=== PATIENT | female | born 1960 | race Caucasian/White ===

== ENCOUNTER 2021-05-09 09:48 | Outpatient (CLI) | payer SELFPAY ==
--- NOTE | ~2021-05-09 | XR_ITS ---
EXAMINATION: XR chest 2V DATE: 05/09/2021 10:15 INDICATION: Shortness of breath, tobacco use TECHNIQUE: PA and lateral views of the chest are obtained. COMPARISON: 02/12/2017 FINDINGS: The lungs are free of acute opacities. There is no pleural effusion or pneumothorax. The ca rdiomediastinal silhouette is normal. There is moderate thoracic spondylosis. IMPRESSION: 1. No acute cardiopulmonary abnormality. Reviewed, dictated and finalized at location B.
[2021-05-09 10:05] LABS: Basophils Absolute Auto 0.06 K/mm3 (0.00-0.10); Eosinophils Absolute Auto 0.22 K/mm3 (0.02-0.50); Eosinophils Percent Auto 3.7 % (1.0-6.0); Hematocrit 41.4 % (35.0-49.0); Hemoglobin 13.6 g/dL (12.0-15.0); Immature Granulocyte Absolute 0.03 K/mm3 (0.00-0.00); Immature Granulocyte Percent A 0.5 % (0.0-0.0); Lymphocytes Absolute Auto 1.41 K/mm3 (1.10-4.50); Lymphocytes Percent Auto 23.6 % (18.0-42.0); Mean Corpuscular HGB Conc 32.9 g/dL (32.0-36.0); Mean Corpuscular Volume 91.4 fL (78.0-102.0); Mean Platelet Volume 8.8 fl (9.2-11.8); Monocytes Absolute Auto 0.64 K/mm3 (0.10-0.90); Monocytes Percent Auto 10.7 % (2.0-11.0); Neutrophils Absolute Auto 3.6 K/mm3 (1.7-7.2); Neutrophils Percent Auto 60.5 % (50.0-70.0); Platelet Count Result 300 K/mm3 (150-420); Red Blood Count 4.53 M/mm3 (4.20-5.40); Red Cell Distribution Width 13.3 % (11.6-14.4)
[2021-05-09 10:50] LABS: Alanine Aminotransferase 30 U/L (14-59); Albumin Level 3.9 g/dL (3.4-5.0); Alkaline Phosphatase 77 U/L (46-116); Anion Gap 12 mmol/L (8-16); Aspartate Amino Transferase 19 U/L (15-37); Bilirubin,Total 0.3 mg/dL (0.00-1.00); Blood Urea Nitrogen 22 mg/dL (7-18); Calcium 9.1 mg/dL (8.5-10.1); Carbon Dioxide 25 mmol/L (21-32); Chloride 106 mmol/L (98-108); Cholesterol 255 mg/dL (0-200); Estimated Glomerular Filt Rate 56; Glucose 100 mg/dL (70-99); HDL Direct 45 mg/dL (40-60); LDL Cholesterol Calculated 170 mg/dL (<130); Osmolality Calculated 299 mOsm/kg (285-295); Potassium 4.9 mmol/L (3.5-5.1); Sodium 143 mmol/L (136-145); Total Protein 7.3 g/dL (6.4-8.2); Triglycerides 199 mg/dL (0-150)
== END 2021-05-09 09:49 | disposition home or self-care (01) ==
PROVIDERS: PCP Nurse Practitioner Family; Visit Provider Nurse Practitioner Family
DX: J44.9 Chronic obstructive pulmonary disease, unspecified (principal); E78.5 Hyperlipidemia, unspecified
CPT/HCPCS: 36415; 71046; 80053; 80061; 85025

== ENCOUNTER 2023-08-08 11:14 | Outpatient (CLI) | payer SELFPAY ==
[2023-08-08 11:26] LABS: Basophils Absolute Auto 0.05 K/mm3 (0.00-0.10); Basophils Percent Auto 0.8 % (0.0-1.0); Eosinophils Absolute Auto 0.12 K/mm3 (0.02-0.50); Hematocrit 41.9 % (35.0-49.0); Hemoglobin 13.9 g/dL (12.0-15.0); Immature Granulocyte Absolute 0.01 K/mm3 (0.00-0.00); Immature Granulocyte Percent A 0.2 % (0.0-0.0); Lymphocytes Absolute Auto 1.43 K/mm3 (1.10-4.50); Lymphocytes Percent Auto 24.2 % (18.0-42.0); Mean Corpuscular HGB Conc 33.2 g/dL (32.0-36.0); Mean Corpuscular Hemoglobin 30.3 pg (27.0-31.0); Mean Corpuscular Volume 91.5 fL (78.0-102.0); Mean Platelet Volume 8.7 fl (9.2-11.8); Monocytes Absolute Auto 0.63 K/mm3 (0.10-0.90); Monocytes Percent Auto 10.7 % (2.0-11.0); Neutrophils Absolute Auto 3.7 K/mm3 (1.7-7.2); Neutrophils Percent Auto 62.1 % (50.0-70.0); Platelet Count Result 255 K/mm3 (150-420); Red Blood Count 4.58 M/mm3 (4.20-5.40); Red Cell Distribution Width 14.2 % (11.6-14.4); White Blood Count 5.9 K/mm3 (4.8-10.8)
[2023-08-08 12:20] LABS: Alanine Aminotransferase 22 U/L (14-59); Albumin Level 3.6 g/dL (3.4-5.0); Alkaline Phosphatase 90 U/L (46-116); Anion Gap 13 mmol/L (8-16); Aspartate Amino Transferase 20 U/L (15-37); Bilirubin,Total 0.5 mg/dL (0.00-1.00); Blood Urea Nitrogen 19 mg/dL (7-18); Carbon Dioxide 26 mmol/L (21-32); Chloride 104 mmol/L (98-108); Cholesterol 247 mg/dL (0-200); Estimated Glomerular Filt Rate > 60; Free T4 Free Thyroxine 0.91 ng/dL (0.76-1.46); Glucose 106 mg/dL (70-99); HDL Direct 48 mg/dL (40-60); LDL Cholesterol Calculated 140 mg/dL (<130); Osmolality Calculated 298 mOsm/kg (285-295); Potassium 4.2 mmol/L (3.5-5.1); Sodium 143 mmol/L (136-145); Thyroid Stimulating Hormone 2.44 uIU/mL (0.36-3.74); Total Protein 6.7 g/dL (6.4-8.2); Triglycerides 294 mg/dL (0-150)
[2023-08-08 14:20] LABS: Hemoglobin A1C 6.2 % (<5.7)
== END 2023-08-08 11:15 | disposition home or self-care (01) ==
LOC: CHSLAB 11:15
PROVIDERS: PCP Nurse Practitioner Family; Visit Provider Nurse Practitioner Family
DX: R73.9 Hyperglycemia, unspecified (principal); Z13.6 Encounter for screening for cardiovascular disorders; R94.6 Abnormal results of thyroid function studies; E03.9 Hypothyroidism, unspecified; I10 Essential (primary) hypertension; E78.5 Hyperlipidemia, unspecified
CPT/HCPCS: 36415; 80053; 80061; 83036; 84439; 84443; 85025

== ENCOUNTER 2024-05-03 18:18 | Emergency (ER) | payer OTHER, SELFPAY ==
[2024-05-03 18:20] VITALS: BP 144/95; PULSE 122; RESP 22; TEMP 36.6; O2SAT 97
[2024-05-03 18:23] VITALS: BP 144/95; PULSE 122; RESP 22; TEMP 36.6; O2SAT 97
--- NOTE | 2024-05-03 18:25 | ED.NAVMDI ---
HPI - Nausea/Vomiting/Diarrhea General Chief complaint: Nausea/Vomiting/Diarrhea Stated complaint: throwing up & back pain Time Seen by Provider: 05/03/24 18:25 Source: patient Mode of arrival: ambulatory Limitations: no limitations History of Present Illness HPI Narrative: 63-year-old female, smoker with a history dyslipidemia, COPD presents to the ER with a 1 day history of -- nausea with multiple episodes of vomiting. She has had 8 episodes of vomiting since this morning. no hematemesis or melena. -- Diarrhea. -- Chills without any fever no abdominal pain. No recent antibiotics. The patient feels dry and has decreased urine output. The patient has not eaten anything out of the ordinary. MD elicited complaint: nausea, vomiting and diarrhea Onset (ago): hour(s) ( 12 hours) Description of vomiting: watery Description of diarrhea: watery Associated nausea: Yes Associated abdominal pain: No Location of pain: none Quality: aching Exacerbating factors: none Relieving factors: none Associated symptoms: denies other symptoms Related Data Home Medications Medication Instructions Recorded Confirmed omeprazole 20 mg capsule,delayed 20 mg PO BID PRN Indigestion 01/20/20 05/03/24 release Allergies Allergy/AdvReac Type Severity Reaction Status Date / Time Penicillins Allergy Intermediate unknown Verified 05/03/24 18:22 rifampin Allergy Intermediate unknown Verified 05/03/24 18:22 Review of Systems Review of Systems: All systems reviewed & are unremarkable except as noted in HPI and below Constitutional: Constitutional: Reports as per HPI, Reports no additional constitutional complaints and Reports chills Eyes: Eyes: Reports as per HPI and Reports no additional eye complaints ENT: Reports system reviewed and no additional complaints, except as documented and Reports as per HPI Cardiovascular: Cardiovascular: Reports as per HPI and Reports no additional cardiovascular complaints Respiratory: Respiratory: Reports as per HPI and Reports no additional respiratory complaints Gastrointestinal: Gastrointestinal: Reports as per HPI, Reports no additional gastrointestinal complaints, Reports diarrhea, Reports nausea and Reports vomiting Genitourinary: Genitourinary: Reports no additional female genitourinary complaints Musculoskeletal: Musculoskeletal: Reports no additional musculoskeletal complaints and Reports as per HPI Integumentary/Breasts: Skin/Breast: Reports system reviewed and no additional complaints, except as docu and Reports as per HPI Neurologic: Reports system reviewed and no additional complaints, except as documented and Reports as per HPI Psychiatric: Psychiatric: Reports no additional psychiatric complaints and Reports as per HPI Endocrine: Endocrine: Reports no additional endocrine complaints and Reports as per HPI Hematologic/Lymphatic: Hematologic/Lymphatic: Reports no additional hematologic/lymphatic complaints and Reports as per HPI Allergic/Immunologic: Allergic/Immunologic: Reports no additional allergic/immunologic complaints and Reports as per HPI [facility] Past Medical History Medical History COPD (chronic obstructive pulmonary disease) Drug-induced hepatitis Hyperlipidemia Surgical History Surgical History History of hand surgery right-repair after injury left-repair after brown recluse Social History Social History Smoking packs per day: 1 Smoking cigarettes per day: 20.0 Years smoked: 40 Smoking pack-years: 40.00 Smoking status: Current every day smoker Tobacco type: cigarettes and e-cigarettes/vaping Alcohol intake: current Drinks per week: 9 Substance use: never Substance use type: does not use Living arrangements: alone Occupation/Education: occupation Additional occupation/educati
[2024-05-03] MEDS: LACTATED RINGERS 1,000 ML 999 ML IV CONT ×2 (18:40→20:02)
[2024-05-03] MEDS: PROCHLORPERAZINE EDISYLATE 10 MG/2 ML VIAL IV PUSH (18:41)
--- NOTE | 2024-05-03 18:55 | PC.NURSE ---
assumed care. report received from sadie roldan
[2024-05-03 19:00] VITALS: BP 108/75; PULSE 104; RESP 20; TEMP 36.7; O2SAT 100
--- NOTE | 2024-05-03 19:04 | PC.NURSE ---
lab at the bedside
--- NOTE | 2024-05-03 19:10 | PC.NURSE ---
ER provider at the bedside
[2024-05-03 19:21] LABS: Appearance Urine Clear (Clear); Basophils Absolute Auto 0.02 K/mm3 (0.00-0.10); Basophils Percent Auto 0.2 % (0.0-1.0); Bilirubin Urine Negative (Negative); Blood Urine Negative (Negative); Color Urine Light Yellow (Yellow); Glucose Urine UA Negative (Negative); Hemoglobin 13.2 g/dL (12.0-15.0); Immature Granulocyte Absolute 0.06 K/mm3 (0.00-0.00); Immature Granulocyte Percent A 0.6 % (0.0-0.0); Ketones Urine 3+ (Negative); Leukocyte Esterase Ur Negative LEU/UL (Negative); Lymphocytes Absolute Auto 0.57 K/mm3 (1.10-4.50); Lymphocytes Percent Auto 5.4 % (18.0-42.0); Mean Corpuscular HGB Conc 33.8 g/dL (32-36); Mean Corpuscular Hemoglobin 31.2 pg (27.0-31.0); Mean Corpuscular Volume 92.2 fL (78.0-102.0); Mean Platelet Volume 9.1 fl (9.2-11.8); Monocytes Percent Auto 3.8 % (2.0-11.0); Neutrophils Absolute Auto 9.42 K/mm3 (1.70-7.20); Nitrate Urine Negative (Negative); Platelet Count Result 300 K/mm3 (150-420); Protein Urine Negative (Negative); Red Blood Count 4.23 M/mm3 (4.20-5.40); Red Cell Distribution Width 13.7 % (11.6-14.4); Specific Grav Ur >= 1.030 (1.010-1.020); Urobilinogen Urine 0.2 mg/dL (0.2-1.0); White Blood Count 10.5 K/mm3 (4.8-10.8)
[2024-05-03 19:27] LABS: Add Urine Microscopic? YES; Squamous Epithelial Cell Urine Few /hpf (Few)
[2024-05-03 19:30] LABS: Prothrombin Time 10.7 Seconds (9.50-12.1)
[2024-05-03 19:34] LABS: Alanine Aminotransferase 20 U/L (14-59); Albumin Level 3.4 g/dL (3.4-5.0); Alkaline Phosphatase 76 U/L (46-116); Anion Gap 26 mmol/L (4-12); Aspartate Amino Transferase 22 U/L (15-37); Bilirubin,Total 0.5 mg/dL (0.00-1.00); Blood Urea Nitrogen 18 mg/dL (7-18); Calcium 8.8 mg/dL (8.5-10.1); Carbon Dioxide 12 mmol/L (21-32); Chloride 102 mmol/L (98-108); Estimated CRCL calculation 36 ml/min; Estimated Glomerular Filt Rate 48; Glucose 73 mg/dL (70-99); Lipase 24 U/L (16-77); Osmolality Calculated 290 mOsm/kg (285-295); Potassium 3.9 mmol/L (3.5-5.1); Sodium 140 mmol/L (136-145); Total Protein 6.9 g/dL (6.4-8.2)
[2024-05-03 19:37] LABS: Lactic Acid Reflex 3.5 mmol/L (0.4-2.0)
--- NOTE | 2024-05-03 19:39 | PC.NURSE ---
patient resting quietly on stretcher. awaiting test results. reports that she is feeling better than on arrival. call light is in reach.
--- NOTE | 2024-05-03 20:40 | PC.NURSE ---
plan for discharge after IVF have completed.
[2024-05-03 21:33] VITALS: BP 138/87; PULSE 95; RESP 18; O2SAT 100
== END 2024-05-03 21:33 | disposition home or self-care (01) ==
PROVIDERS: Emergency Provider Internal Medicine Critical Care Medicine; PCP Family Medicine
DX: K52.9 Noninfective gastroenteritis and colitis, unspecified (principal); E86.0 Dehydration; E78.5 Hyperlipidemia, unspecified; J44.9 Chronic obstructive pulmonary disease, unspecified; F17.210 Nicotine dependence, cigarettes, uncomplicated
CPT/HCPCS: 36415; 80053; 81001; 83605; 83690; 85025; 85610; 96361; 96374; 99284; J0780; J7120

== ENCOUNTER 2025-01-21 11:44 | Outpatient (CLI) | payer MEDICARE, SELFPAY ==
[2025-01-21 12:02] LABS: Basophils Absolute Auto 0.02 K/mm3 (0.00-0.10); Basophils Percent Auto 0.3 % (0.0-1.0); Eosinophils Absolute Auto 0.04 K/mm3 (0.02-0.50); Eosinophils Percent Auto 0.5 % (1.0-6.0); Hematocrit 44.7 % (35.0-42.0); Hemoglobin 14.7 g/dL (11.7-13.8); Immature Granulocyte Absolute 0.03 K/mm3 (0.00-0.00); Immature Granulocyte Percent A 0.4 % (0.0-0.0); Lymphocytes Absolute Auto 1.25 K/mm3 (1.10-4.50); Lymphocytes Percent Auto 15.7 % (18.0-42.0); Mean Corpuscular HGB Conc 32.9 g/dL (32-36); Mean Corpuscular Hemoglobin 30.1 pg (27.0-31.0); Mean Corpuscular Volume 91.6 fL (78.0-102.0); Mean Platelet Volume 8.8 fl (9.2-11.8); Monocytes Absolute Auto 0.66 K/mm3 (0.10-0.90); Monocytes Percent Auto 8.3 % (2.0-11.0); Neutrophils Absolute Auto 5.95 K/mm3 (1.70-7.20); Neutrophils Percent Auto 74.8 % (50.0-70.0); Platelet Count Result 324 K/mm3 (150-420); Red Blood Count 4.88 M/mm3 (4.20-5.40)
[2025-01-21 12:30] LABS: Hemoglobin A1C 5.7 % (<5.7)
--- OUTSIDE RECORDS SUMMARY | 2025-01-21 13:13 | XMS_ITS | Clinical Summary ---
Author Organization [facility] Address [address] [place] [id number] Care Team Providers Care It Security Manager Name Role Phone Unavailable Primary Care Provider Unavailabl e Social History Tobacco Use Types Packs/Day Years Used Date Smoking Tobacco: Never Assessed Comments Unknown Sex and Gender Information Value Date Recorded Sex Assigned at Not on file Legal Sex Female 4:09 PM CDT Gender Identity Not on file Sexual Orientation Not on file Plan of Treatment Health Maintenance Due Date Last Done Comments Colorectal Cancer Screening Colonoscopy (10 Years) 1960 Hepatitis C 12/29/1977 DTaP, Tdap and Td Vaccines (1 - Tdap) 12/29/1978 Mammogram Screening 1999 Zoster Vaccines (1 of 2) 12/29/2009 COVID-19 Vaccine ( season) 2024 02/27/2022, 09/16/2021, 12/09/2020, Additional history exists Influenza Adult (#1) 2024 Dexa Scan (General) 12/29/2024 Pneumococcal Vaccine: 65+ Years (1 of 1 - PCV) 12/29/2024 RSV Immunization or 60+ Years (1 - 1-dose 75+ series) 12/29/2034 Meningococcal B Vaccine Aged Out No l onger eligible based on patient's age to complete this topic Meningococcal Vaccine Aged Out No chaz sue eligible based on patient's age to complete this topic Pneumococcal Vaccine: Pediatrics (0 to 5 Years) and At-Risk Patients (6 to 64 Years) Aged Out No longer eligible based on patient's age to complete this topic RSV Immunizations Under 20 Months Aged Out No longer eligible based on patient's age to complete this topic Insurance MEDICAID
[2025-01-21 14:21] LABS: Alanine Aminotransferase 22 U/L (14-59); Albumin Level 4.2 g/dL (3.4-5.0); Alkaline Phosphatase 111 U/L (46-116); Anion Gap 14 mmol/L (4-12); Aspartate Amino Transferase 17 U/L (15-37); Bilirubin,Total 0.7 mg/dL (0.00-1.00); Blood Urea Nitrogen 29 mg/dL (7-18); Calcium 9.5 mg/dL (8.5-10.1); Carbon Dioxide 22 mmol/L (21-32); Chloride 100 mmol/L (98-108); Cholesterol 269 mg/dL (0-200); Estimated Glomerular Filt Rate 46; Glucose 163 mg/dL (70-99); HDL Direct 63 mg/dL (40-60); LDL Cholesterol Calculated 160 mg/dL (<130); Lipase 64 U/L (16-77); Osmolality Calculated 291 mOsm/kg (285-295); Potassium 4.4 mmol/L (3.5-5.1); Sodium 136 mmol/L (136-145); Thyroid Stimulating Hormone 1.41 uIU/mL (0.36-3.74); Total Protein 7.9 g/dL (6.4-8.2); Triglycerides 228 mg/dL (0-150)
== END 2025-01-21 11:45 | disposition home or self-care (01) ==
LOC: CHSLAB 11:45
PROVIDERS: PCP Nurse Practitioner Family; Visit Provider Nurse Practitioner Family
DX: R73.03 Prediabetes (principal); E78.5 Hyperlipidemia, unspecified
CPT/HCPCS: 36415; 80053; 80061; 83036; 83690; 84443; 85025

== ENCOUNTER 2025-01-29 12:55 | Outpatient (CLI) | payer MEDICARE, SELFPAY ==
--- NOTE | ~2025-01-29 | CT_ITS ---
CT Scan of the Chest without Contrast: Clinical Indication: Lung cancer screening, nicotine dependence Technique: Contiguous sections were acquired throughout the chest without intravenous contrast. Dose reduction technique was used on this scan by utilizing automated exposure control and iterative recon struction technique. The dose-length product (DLP) was 60.22 mGy-cm. Findings: There is no evidence of any significant mediastinal, hilar or axillary lymphadenopathy. Small calcifi ed lymph nodes are present. There is no evidence of pleural or pericardial effusion. Small vague groundglass nodule noted in the left lower lobe (axial image 39). Moderate emphysema. Images through the upper abdomen reveal no abnormalities. Impression: Lung RADS 2: Benign appearance. 12 month follow-up screening CT advised. Moderate emphysema. Reviewed, dictated and finalized at [facility]. Impression: Lung RADS 2: Benign appearance. 12 month follow-up screening CT advised. Moderate emphysema.
--- NOTE | ~2025-01-29 | MM_ITS ---
EXAMINATION: MM screening sidney BI w litzy HISTORY: Screening TECHNIQUE: Craniocaudal and mediolateral oblique 3-D tomosynthesis images were obtained and synthetic 2-D images were generated. CAD analysis was submitted and interpreted. COMPARISON: 06/30/2016 BREAST PARENCHYMAL COMPOSITION: Dense: The breasts are heterogeneously dense, which may obscure small masses FINDINGS: There is no evidence of suspicious mass, calcification, or architectural distortion to sugg est malignancy in either breast. There has been no suspicious interval change. IMPRESSION: 1. No mammographic evidence of malignancy. 2. Recommend routine screening mammography in one year. BI-RADS Category 1: Negative Reviewed, dictated and finalized at location A.
--- OUTSIDE RECORDS SUMMARY | 2025-01-29 13:18 | XMS_ITS | Clinical Summary ---
Author Organization [facility] Address [address] [place] [id number] Care Team Providers Care Mileage Clerk Name Role Phone Unavailable Primary Care Provider [...] 2024 02/27/2022, 09/16/2021, 12/09/2020, Additional history exists Dexa Scan (General) 12/29/2024 Pneumococcal Vaccine: 65+ [...]
== END 2025-01-29 12:56 | disposition home or self-care (01) ==
PROVIDERS: PCP Nurse Practitioner Family; Visit Provider Nurse Practitioner Family
DX: Z12.31 Encounter for screening mammogram for malignant neoplasm of breast (principal); Z87.891 Personal history of nicotine dependence; Z12.2 Encounter for screening for malignant neoplasm of respiratory organs; J43.9 Emphysema, unspecified
CPT/HCPCS: 71271; 77063; 77067

== ENCOUNTER 2025-02-17 11:58 | Outpatient (NON) | payer MEDICARE, SELFPAY ==
--- OUTSIDE RECORDS SUMMARY | 2025-02-17 13:11 | XMS_ITS | Clinical Summary ---
Author Organization [facility] Address [address] [place] [address] Care Team Providers Care Laborer Steel Handling Name Role Phone Unavailable Primary Care Provider [...] (1 - Tdap) 12/29/1978 Mammogram Screening 1999 Pneumococcal Vaccine: 50+ Years (1 of 1 - PCV) 12/29/2009 Zoster Vaccines (1 of 2) 12/29/2009 COVID-19 Vaccine (5 - season) 2024 02/27/2022, 09/16/2021, 12/09/2020, Additional history exists Dexa Scan (General) 12/29/2024 RSV Immunization or 60+ Years (1 [...]
== END 2025-02-17 11:59 | disposition home or self-care (01) ==
PROVIDERS: Visit Provider Nurse Practitioner Family
DX: Z11.4 Encounter for screening for human immunodeficiency virus [HIV] (principal); Z12.4 Encounter for screening for malignant neoplasm of cervix; Z11.51 Encounter for screening for human papillomavirus (HPV); Z11.8 Encounter for screening for other infectious and parasitic diseases; Z11.3 Encounter for screening for infections with a predominantly sexual mode of transmission
CPT/HCPCS: 87491; 87591; 87624; 88175; G0145

== ENCOUNTER 2025-03-03 12:52 | Outpatient (CLI) | payer MEDICARE, SELFPAY ==
--- OUTSIDE RECORDS SUMMARY | 2025-03-03 13:01 | XMS_ITS | Clinical Summary ---
Author Organization [facility] Address [address] [place] [address] Care Team Providers Care Business Applications Developer Name Role Phone Unavailable Primary Care Provider Unavailabl e Encounters Date Type Department Care Team Description 02/17/2025 7:02 AM CDT - 02/17/2025 11:59 PM CDT Hospital Encounter [facility] [address] [place] [address] Non-Staff, Provider Discharge Disposition: Home or Self Care (Routine Discharge) from Last 3 Months Social History Tobacco Use Types Packs/Day Years [...] on patient's age to complete this topic Procedures Procedure Name Priority Date/Time Associated Diagnosis Comments HPV GENOTYPES 16, 18/45 Routine 02/17/2025 12:00 PM CDT HUMAN PAPILLOMAVIRUS, HIGH-RISK TYPES Routine 02/17/2025 12:00 PM CDT from Last 3 Months Results * HPV GENOTYPES 16, 18/45 (02/17/2025 12:00 PM CDT) HPV 16 RNA NOT DETECTED NOT DETECTED 02/27/2025 6:31 AM CDT [facility] [facility] HPV 18/45 RNA NOT DETECTED NOT DETECTED 02/27/2025 6:31 AM CDT [facility] Comment: Methodology: Control Analyst-Mediated Amplification Cervical sources are required for HPV testing. If a vaginal source from a patient who has had a total hysterectomy with removal of cervix was submitted, please contact the testing laboratory for alternative testing options. The analytical performance characteristics of this assay have been determined by [facility], [place]. The modifications have not been cleared or approved by the FDA. This assay has been validated pursuant to the CLIA regulations and is used for clinical purposes. Test Performed by [facility], [facility] [place], [address] [place] [address] Avila Diaz M.D., Ph.D., Director of Laboratories , CLIA [id number] 02/17/2025 12:0 0 PM CDT us Provider Non-Staff PATHOLOGY/CYTOLOGY ORDERABLES Final Result [facility] , * (ABNORMAL) HUMAN PAPILLOMAVIRUS, HIGH-RISK TYPES (02/17/2025 12:00 PM CDT) SPEC DESCRIPTION CERVIX 02/20/2025 7:20 AM CDT [facility] HPV DNA HIGH RISK POSITIVE(A ) NEGATIVE 02/20/2025 2:09 PM CDT [facility] Comment:SEE CYTOLOGY REPORT 02/17/2025 12:0 0 PM CDT us Provider Non-Staff PATHOLOGY/CYTOLOGY ORDERABLES Final Result [facility] [address] [place] [address], from Last 3 Months Insurance MEDICAID
--- NOTE | 2025-03-03 13:05 | ECHO_ITS ---
"Patient Info Name: Danica Leyva Age: 64 years : 1960 Gender: Female Ht: 63 in Wt: 117 lbs BSA: 1.54 m2 BP: 132 / 92 mmHg Technical Quality: Good Exam Date: 03/03/2025 1:09 PM Patient Status: O Admit Date: 03/03/2025 Exam Type: CA echo doppler color flow Study Info Complete two-dimensional, color flow and Doppler transthoracic echocardiogram is performed. Auto Parts Manager: Ernestina Jackson Attending Provider: Leonora Bobo Summary 1. Complete two-dimensional, color flow and Doppler transthoracic echocardiogram is performed. 2. Left ventricular chamber dimension is normal. 3. Left ventricular systolic function is normal, estimated at 65-70. 4. The left ventricular diastolic function is grade I diastolic dysfunction. 5. E/e' 6 is not elevated. 6. There is trace tricuspid valve regurgitation. 7. No pulmonary hypertension, estimated pulmonary arterial systolic pressure is 30 mmHg. Left Ventricle E/e' 6 is not elevated. Left ventricular chamber dimension is normal. Left ventricular systolic function is normal, estimated at 65-70. The left ventricular diastolic function is grade I diastolic dysfunction. Right Ventricle Right ventricular chamber dimension is normal. Right ventricular systolic function is normal. Left Atria Left atrial chamber dimension is normal. Right Atria Right atrial chamber dimension is normal. Aortic Valve The aortic valve is trileaflet. There is no aortic valve stenosis. There is no aortic valve regurgitation. Pulmonic Valve There is no pulmonic regurgitation. Mitral Valve There is no mitral valve stenosis. There is no mitral valve regurgitation. Tricuspid Valve There is trace tricuspid valve regurgitation. No pulmonary hypertension, estimated pulmonary arterial systolic pressure is 30 mmHg. Pericardium/Pleural There is no pericardial effusion. Inferior Vena Cava Normal inferior vena cava with >50% collapse upon inspiration consistent with normal right atrial pressure, 5 mmHg. Aorta The aortic root size at the sinus of Valsalva is normal. Left Ventricular Outflow Tract Name Value Normal LVOT 2D LVOT Diameter 1.9 cm LVOT Doppler LVOT Peak Velocity 90 cm/s LVOT Peak Gradient 3 mmHg LVOT Mean Gradient 2 mmHg LVOT VTI 18 cm LVOT VTI/AV VTI Ratio 0.8 LVOT Stroke Volume 51 ml LVOT CO 3.8 l/min LVOT CI 2.4 l/min/m2 Pulmonic Valve Name Value Normal RVOT Doppler RVOT Peak Velocity 61 cm/s RVOT Peak Gradient 1 mmHg PV Doppler PV Peak Velocity 71 cm/s PV Peak Gradient 2 mmHg Mitral Valve Name Value Normal MV Diastolic Function MV E Peak Velocity 43 cm/s MV A Peak Velocity 68 cm/s MV E/A 0.6 MV Decel Time (PW) 268 ms MV Annular TDI MV E/e' (Septal) 6.9 MV E/e' (Lateral) 6.6 MV E/e' (Average) 6.8 Tricuspid Valve Name Value Normal TV Regurgitation Doppler TR Peak Velocity 249 cm/s TR Peak Gradient 24 mmHg Estimated PAP/RSVP RA Pressure 5 mmHg <=5 PA Systolic Pressure 30 mmHg <36 RV Systolic Pressure 30 mmHg <36 TV Annular TDI TV Lateral Janey s' Velocity 8.7 cm/s >=9.5 Aortic Valve Name Value Normal AV Doppler AV Peak Velocity 107 cm/s AV Peak Gradient 5 mmHg AV Mean Gradient 2 mmHg AV VTI 23 cm AV Area (Cont Eq VTI) 2.2 cm2 >=3.0 AV Area (Cont Eq Nitin) 2.4 cm2 AV DI (Nitin) 0.84 AV Regurgitation 2D LVOT Area 2.9 cm2 Ventricles Name Value Normal LV Dimensions 2D/MM IVS Diastolic Thickness (2D) 0.8 cm 0.6-1.0 LVID Diastole (2D) 3.9 cm 3.8-5.2 LVIW Diastolic Thickness (2D) 0.9 cm 0.6-0.9 LVID Systole (2D) 2.8 cm 2.2-3.5 LVOT Diameter 1.9 cm LV Mass (2D Cubed) 95.30 g 67.00-162.00 LV Mass Index (2D Cubed) 62 g/m2 43-95 Relative Wall Thickness (2D) 0.45 <=0.42 LV Fractional Shortening/Ejection Fraction 2D/MM LV Fractional Shortening (2D) 28 % 27-45 LV EF (2D Teichholz) 56 % LV Diastolic Volume (4C MOD) 59 ml LV EF (4C MOD) 70 % LV Diastolic Volume (2C MOD) 69 ml LV EF (2C MOD) 71 % LV Diastolic Volume (BP MOD) 64 ml 46-106 LV Diastolic Volume Index (BP MOD) 42 ml/m2 29-61 LV Systolic Volume (BP MOD) 19 ml 14-42 LV Systolic Volume Index (BP MOD) 12 ml/m2 8-24 LV EF (BP MOD) 70 % 54-74 LV Diastolic Length (4C) 7.8 cm LV Systolic Length (4C) 6.0 cm LV Stroke Volume (4C MOD) 41 ml Atria Name Value Normal LA Dimensions LA Volume (4C A-L) 32 ml LA Volume (BP A-L) 32 ml RA Dimensions RA Systolic Major Erie Length (4C) 4.4 cm 2.2-2.8 RA Area (4C) 14.2 cm2 <=18.0 Report Signatures Qr8aOeWXSjHX3ZcxDHhyBOXsm6RgRHi6LGStODYmYVOtKEWoXMXAOzOsDmToAA4eDnZjCgRkKM8EeuBlqI7wOFnLVr6LJIHjX D4+BPubhcOrJhfHCeRhYRKxIujMTwu7XE0IzRFzOE7KCBYvxV5sCCspLTPsNMDfPNQeMuGiYSYKTzPzFM8MMJXvGRG0MLUaNQYfKC CYIlGqYZ8FVOUhPQ8essI1QEXcLPQvd0YsGLOecMNsYr7FFyMmUC4PwNWijIXPhjRsqxRaBPpBXxHcLOm5AW3NsHBmOW8XfLAgvGC VlwPltuWQGcQwHXUnFR0BPE4ETJKjDOHFVJZBNJ1VXHXuHUUvK664zWI1vIYxxxWgaKunykufME99fTRnVKKzKGDNZ2CrDNaxVXKh BXGaRGGejR86zLM0aDUml7TayXYkPcMvXMNLCHsdCOB+Qf8MYKPyFL9RSv0GCkVsHW7kyq1DIcVcFK3whe8ODGzgW1S1rXLbS4RjV 8TcPOaeUPAcX7fbxaYhVnnpHRSRFKOvEWDTPK1PRVNuD9UnpH06NXQHGn1+CRsjphIgLdcHFzEfZZMjPyvMCtx6QE2oBNTeIP6NJS PqIh5siLGwWV9+VZklotMzGlmFOdWtVCWgBxrRNhg9BC2SgMOaXM6JJ6PzQQB9FLmwPGAvR5PweLhgWKTxSC4sT0KGBqFkDO3QfKO 7rYCoVWJZCjEgSZ6PWYoazWWtTEJSMcWqNO6Ug4scfnWxPMSrBB1REHZlT6SYD4YSFaGpVB2DxKVrWXOrR64jtO4xQV56EQoTHpHc QI4KcGw3LLTyF3USNPPkR35uMW9DUKSdT7PwiB5xFQUajaYdq4EfXQOANoGoFO0DNI6wmWjlZrRuUU2FRj5NMzM4dsNdqY7J/9j/4 AAQSkZJRgABAQAAAQABAAD/3tNvUQQOM7UHH2KXIWQRKSCYOFGMVVELSFKCOLSckeQgVeiWNSqETsLXOKOSKPWKRGVIIATeF9JlET JEJQHRUZUKEDZAPHMOEFPZCWDVVBBAAHWAUJAF1nBCVEALMYKKJLNDISPPFMYJDYRGRBOQXLHKDKTQNYILOKPWKEAVWWDSNKBEXAB XUAZAIZZJGGCMFMRQIQipSCVbJFAZ9UCANAPgZQraSMZARHMDELVmYTqzHXCFaMSKKUYlUZqaHEOBnWDELSZgGSRPDOYEpYZNEFlt VOFQRYFPyMNHPJmuQOSKMIDYgIDZBXd6rHP7ZQSSvEIXNLUpfUG0QFMF9MDIHDfryHWbLBHVAASAZMDLVZJSMZ9NUxRKUKpKYIMiA HMAUgBHAEIAAAAAAAAAAAAAAAAAAAAAAAAAAAAAAAAAAAAAAAAAAAAAAAAAAAAAAAAAAAAAAAAAAAAAAAAAAAAAAAAAAAAAAAAAAA AJMKWHCOSYUWWMJPkFDoANRKDUXYVqhxYCEXRFBYPZOWcqMISJCNDFVRDPIXS5wRHFBHzPTYngWRMPUXMXEUYVKL+DZWG9r7NdxeW YCYFNIJUMVMAVOxJSXHCrXZJSVJJUC0ESXJtbEPOEXMANKZLLMGveSWWZWZEY3eZPWOLXKDHKZX9qcZUGDQUTWDIYAOXQBSsfmkCM NSSXQXAUQHpQYkFvVN5MGvTmNAWMTVFMVA8LEoBcUHBEIhLkDMRPWp/bAEMAAwICAgICAwICAgMDAwMEBgQEBAQECAYGBQYJCAoKC ApOXZeLUfrVMw4OOCvSGG9HDcSCIKFORHVBUdLILsEVNR/bAEMBAwMDBAMECAQECBALCQsQEBAQEBAQEBAQEBAQEBAQEBAQEBAQEB AQEBAQEBAQEBAQEBAQEBAQEBAQEBAQEBAQEP/AABEIADIBIwMBIgACEQEDEQH/xAAeAAEAAgIDAQEBAAAAAAAAAAAABwgFBgEDBAk CCv/ULEQCLAXDCtOKCrZERgSYOBHUJMBFJzQYPTWWTSWYVCsKJvLHYHgRUgOnHIXsE9SMGyh8UnO8oQGLKLCIQTAt7M/EABoBAQAD AQEBAAAAAAAAAAAAAAACAwQHAQX/hYWnIRAGPiULCfSARtBUOBLPJLBEQOZEZlWQWvDMQLOBHuZcoDBVxoOs4JVAF0LvDu/aAAwDA [file] lw+sScT+M726DQDQYiMyvo/ux7ulblJkXce8qY99I7Uj3y4p3kGa6npkjR4Xgbtmd/dS7J4scQ3g1IWqv3Xveq9lUl476pjbK4+Coverstitch Binder [file] [id number]|2025-02-26 15:40:01|2025-02-26 15:40:01|OPREHPOC||||" Outpatient Therapy Plan of Care This is a Multidisciplinary Plan of Care that may contain components documented by all disciplines (PT, OT, and ST.) PT Problem 1 PT Problem #1 Knowledge Deficit PT Goal 1 Goal / Goal Update Independent and compliant with HEP. Target Visit 4 Progress Met PT Problem 2 PT Problem #2 Impaired Strength PT Goal 1 Goal / Goal Update Improve upper abdominal strength to 4-/5. -met Improve lower abdominal strength to 4+/5. -not met Improve gross LE strength to 5/5. -met Target Visit 10 Progress Partially Met PT Problem 3 PT Problem #3 Impaired Functional Mobility PT Goal 1 Goal / Goal Update Pt to improve 6MWT distance to 1300ft. -met Pt to improve 5xSTS time to 10 seconds or less. - met Target Visit 10 Progress Met "
[2025-03-03 13:38] LABS: Albumin Level 4.2 g/dL (3.5-5.1); Anion Gap 5 mmol/L (4-12); Blood Urea Nitrogen 17 mg/dL (7-17); Calcium 9.3 mg/dL (8.4-10.2); Carbon Dioxide 27 mmol/L (22-30); Chloride 108 mmol/L (98-107); Estimated Glomerular Filt Rate > 60; Glucose 102 mg/dL (65-110); Osmolality Calculated 291 mOsm/kg (285-295); Phosphorus 4.2 mg/dL (2.5-4.5); Sodium 140 mmol/L (137-145)
[2025-03-03 13:49] LABS: HIV 1 P24 AG Negative (Negative); HIV 1/2 AB Negative (Negative)
[2025-03-05 01:28] LABS: Hepatitis B Surface Antibody REACTIVE (NON-REACTIVE)
[2025-03-05 02:28] LABS: Hepatitis C Virus Antibody NON-REACTIVE (NON-REACTIVE)
[2025-03-05 12:18] LABS: RPR Screen NON-REACTIVE (NON-REACTIVE)
[2025-03-07 12:07] LABS: Reference Lab Test Name SYPHILLIS IGG/IGM
== END 2025-03-03 12:53 | disposition home or self-care (01) ==
LOC: CHSIMG 12:54
PROVIDERS: PCP Nurse Practitioner Family; Visit Provider Nurse Practitioner Family
DX: Z11.3 Encounter for screening for infections with a predominantly sexual mode of transmission (principal); R79.89 Other specified abnormal findings of blood chemistry; I51.7 Cardiomegaly; R07.89 Other chest pain
CPT/HCPCS: 36415; 80069; 86592; 86706; 86780; 86803; 87806; 93306

== ENCOUNTER 2025-03-13 01:36 | Day surgery (SDC) | payer MEDICARE, SELFPAY ==
[2025-03-05 10:46] VITALS: BMI 21.4
[2025-03-13 13:15] VITALS: BP 124/94; PULSE 91; RESP 16; TEMP 36.4; O2SAT 98; BMI 20.5
[2025-03-13] MEDS: LACTATED RINGERS 1,000 ML 150 ML IV CONT (13:26)
--- NOTE | 2025-03-13 14:42 | PM.IMHP ---
H&P: HPI History of Present Illness Date/Time: 03/13/25 14:42 Chief Complaint: GERD -screening colonoscopy Narrative: the patient has been suffering from reflux for several years, having tried different medications including H2 blockers and PPIs. She does endorse occasional dysphagia to solids.. She had a screening colonoscopy 15 years ago And is being referred for Her follow-up screening colonoscopy.. Review of Systems Review of Systems: All systems reviewed & are unremarkable except as noted in HPI and below PMFSH Past Medical History Medical History Belching Blanching of periwound skin Diarrhea Family history of colon cancer Cigarette smoker (06/13/16) Chronic GERD Mild right atrial enlargement Hyperlipidemia COPD (chronic obstructive pulmonary disease) Drug-induced hepatitis Surgical History Surgical History History of hand surgery right-repair after injury left-repair after brown recluse Family History Family History Grandparent , colon cancer Carcinoma of colon Father Heart disease Colon polyp Sibling Colon polyp Social History Social History Smoking packs per day: 1 Smoking cigarettes per day: 20.0 Years smoked: 40 Smoking pack-years: 40.00 Smoking status: Current every day smoker Tobacco type: cigarettes and e-cigarettes/vaping Alcohol intake: current Drinks per week: 9 Substance use: never Substance use type: does not use Living arrangements: alone Occupation/Education: occupation Additional occupation/education comments: NURSE Gender identity (if verbalized by the patient): Female Spiritual care concerns: No Meds Home Medications and Allergies Home Medications ?Medication ?Instructions ?Recorded ?Confirmed ?Type omeprazole 20 mg capsule,delayed 20 mg PO BID PRN Indigestion 01/20/20 03/13/25 History release naltrexone 50 mg tablet 50 mg PO DAILY 12 weeks #84 tabs 01/27/25 03/05/25 Rx Allergies Allergy/AdvReac Type Severity Reaction Status Date / Time Penicillins Allergy Intermediate unknown Verified 03/13/25 13:13 rifampin Allergy Intermediate unknown Verified 03/13/25 13:13 Vital Signs Vital Signs - 24 hr 03/13/25 13:15 Temperature 97.5 F L Pulse Rate 91 Respiratory Rate 16 Blood Pressure 124/94 H Pulse Oximetry 98 Oxygen Delivery Room Air Exam Const: General: cooperative and healthy appearing Resp: Effort & Inspection: normal respiratory effort and able to speak in complete sentences Auscultation: clear to auscultation bilaterally Cardio: Rate: regular rate Rhythm: regular rhythm GI: Inspection: normal to inspection GI Palp: No No hepatosplenomegaly present Auscultation: normal bowel sounds Rectal Exam: deferred Skin: General skin exam: normal color Psych: Appearance: grossly normal Mental Status: mental status grossly normal Assessment and Plan Assessment and plan (1) Chronic GERD: Code(s): K21.9 - Gastro-esophageal reflux disease without esophagitis Status: Acute Assessment and Plan: The patient is deemed a good candidate for the procedures. Consent signed. Will proceed. (2) Colon cancer screening: Code(s): Z12.11 - Encounter for screening for malignant neoplasm of colon Status: Acute
--- NOTE | 2025-03-13 14:44 | P.PNAN_ITS ---
Anes - Initial Pre Proc Eval Procedure: Operation Date: 03/13/25 14:00 Proposed Procedures p Esophagogastroduodenoscopy & Colonoscopy - Ford Mondragon MD Date/Time: 03/13/25 14:44 Surgeon: Ford Mondragon MD Pre Op Diagnosis: Family Hx of malignant neoplasm of digestive organ Patient Data Age: 64 Gender: F Height: 1.6 m Weight: 52.7 kg Last Vital Signs Temp 36.4 C L 03/13/25 13:15 Pulse 91 03/13/25 13:15 Resp 16 03/13/25 13:15 BP 124/94 H 03/13/25 13:15 Pulse Ox 98 03/13/25 13:15 O2 Del Method Room Air 03/13/25 13:15 Allergies Allergy/AdvReac Type Severity Reaction Status Date / Time Penicillins Allergy Intermediate unknown Verified 03/13/25 13:13 rifampin Allergy Intermediate unknown Verified 03/13/25 13:13 Home Medications ?Medication ?Instructions ?Recorded ?Confirmed ?Type omeprazole 20 mg capsule,delayed 20 mg PO BID PRN Indigestion 01/20/20 03/13/25 History release naltrexone 50 mg tablet 50 mg PO DAILY 12 weeks #84 tabs 01/27/25 03/05/25 Rx Patient hx anesthesia problems: none Family hx anesthesia problems: none Results Review: All pre-operative results and documents have been reviewed as part of the pre- operative evaluation. [facility] Past Medical History Medical History Belching Blanching of periwound skin Diarrhea Family history of colon cancer Cigarette smoker (06/13/16) Chronic GERD Mild right atrial enlargement Hyperlipidemia COPD (chronic obstructive pulmonary disease) Drug-induced hepatitis Surgical History Surgical History History of hand surgery right-repair after injury left-repair after brown recluse Family History Family History Grandparent , colon cancer Carcinoma of colon Father Heart disease Colon polyp Sibling Colon polyp Social History Social History Smoking packs per day: 1 Smoking cigarettes per day: 20.0 Years smoked: 40 Smoking pack-years: 40.00 Smoking status: Current every day smoker Tobacco type: cigarettes and e-cigarettes/vaping Alcohol intake: current Drinks per week: 9 Substance use: never Substance use type: does not use Living arrangements: alone Occupation/Education: occupation Additional occupation/education comments: NURSE Gender identity (if verbalized by the patient): Female Spiritual care concerns: No Anes - Eval Final PreProcedure Day of Procedure 03/13/25 14:44 Patient weight: normal Heart: regular rate and rhythm Lungs: decreased breath sounds Airway: Mallampati scale class II Neurological: alert and oriented Last oral intake: >/= 8 hours ASA classification: III Emergent: no Anesthetic plan: proceed Anesthesia type and monitoring: general GIVS and standard monitoring Results Review: All pre-operative results and documents have been reviewed as part of the pre- operative evaluation. Informed Consent: The patient's anesthetic plan and its attendant risks and benefits were discussed with the patient/family/POA. Questions were solicited and answers provided to the satisfaction of the patient/family/POA.
[2025-03-13] MEDS: BENZOCAINE (*SP) 60 ML SPRAY CAN (HURRICAINE) 1 SPRAY MUCOUS MEM (14:51)
[2025-03-13] MEDS: SIMETHICONE ORAL SUSPENSION 20 MG/0.3 ML 30 ML BOTTLE 0.6 ML IRRIGATION (14:52)
--- NOTE | 2025-03-13 15:02 | SUR.OPER ---
EGD: end 1456, COLON: start 1501
[2025-03-13 15:37] VITALS: BP 120/80; PULSE 73; RESP 17; O2SAT 99
[2025-03-13 15:47] VITALS: BP 116/76; PULSE 73; RESP 16; O2SAT 98
[2025-03-13 15:57] VITALS: BP 121/78; PULSE 81; RESP 18; O2SAT 99
== END 2025-03-13 16:05 | disposition home or self-care (01) ==
PROVIDERS: PCP Nurse Practitioner Family; Referring Provider Nurse Practitioner Family; Visit Provider Internal Medicine Gastroenterology
PROC: 0DJ08ZZ Inspection of Upper Intestinal Tract, Via Natural or Artificial Opening Endoscopic (ICD-10-PCS; CPT 45378; principal; 2025-03-13 14:00)
DX: Z12.11 Encounter for screening for malignant neoplasm of colon (principal); K63.5 Polyp of colon; K64.8 Other hemorrhoids; K57.30 Diverticulosis of large intestine without perforation or abscess without bleeding; K21.00 Gastro-esophageal reflux disease with esophagitis, without bleeding; K29.30 Chronic superficial gastritis without bleeding; K44.9 Diaphragmatic hernia without obstruction or gangrene; E78.5 Hyperlipidemia, unspecified; J44.9 Chronic obstructive pulmonary disease, unspecified; F17.210 Nicotine dependence, cigarettes, uncomplicated; F17.290 Nicotine dependence, other tobacco product, uncomplicated; Z98.890 Other specified postprocedural states; Z83.719 Family history of colon polyps, unspecified; Z80.0 Family history of malignant neoplasm of digestive organs; Z82.49 Family history of ischemic heart disease and other diseases of the circulatory system
CPT/HCPCS: 43235; 45385; 88305; J2003; J2704; J7120

== ENCOUNTER → 2025-07-06 12:04 | Outpatient (REF) | payer MEDICARE, SELFPAY ==
--- NOTE | 2025-07-06 12:04 | S_PTH ---
PATIENT: Danica Leyva LOC: [facility] #:[id number] AGE/SX: 64/F ROOM: RE07/06/[address]: Andrew Tuttle MD : 1960 BED: DIS: SPEC #: [id number] RECD: 07/06/25 13:00 STATUS: QUINTON HEADLEY #: [id number] JAVON: 07/06/25 12:[address]: Andrew Tuttle DEPT: [facility] Surgical RECD BY: Lia Rocha ENTERED: 07/06/25 13:01 SP TYPE: Surgical OTHR DR: Leonora Bobo APRN Tissues: A - Cyst Procedures: Hematoxylin and Eosin Stain Gross and Microscopic Level 4
== END ==
LOC: ANHLAB 12:04
PROVIDERS: PCP Nurse Practitioner Family; Visit Provider Plastic Surgery
DX: L72.11 Pilar cyst (principal)
CPT/HCPCS: 88305